=== PATIENT | female | born 1935 | race Caucasian/White ===

== ENCOUNTER → 2017-09-30 | Outpatient (CLI) | payer MEDICARE ==
--- NOTE | 2017-09-30 11:56 | XR ---
EXAMINATION TYPE: XR chest 2V DATE OF EXAM: 09/30/2017 COMPARISON: NONE INDICATION: Cough, enlarged heart per patient TECHNIQUE: Frontal and lateral views of the chest are obtained. FINDINGS: The heart size is normal. Cardiac silhouette diameter is 12 cm versus intrathoracic cavity measureme nt of 28 cm. The pulmonary vasculature is normal. The lungs are clear. IMPRESSION: 1. No acute pulmonary process.
== END | disposition home or self-care (01) ==
LOC: RADXRMAIN 11:13
PROVIDERS: ATTEND Internal Medicine Cardiovascular Disease
DX: R05 Cough (principal)
CPT/HCPCS: 71046

== ENCOUNTER → 2019-08-17 | Outpatient (CLI) | payer MEDICARE ==
[2019-08-17 12:43] LABS: HCT 39.8 % (34.0-46.0); HGB 13.6 gm/dL (11.4-16.0); MCH 32.8 pg (25.0-35.0); MCHC 34.1 g/dL (31.0-37.0); MCV 96.3 fL (80.0-100.0); Mean Platelet Volume 5.4; Platelet Count 310 k/uL (150-450); RBC 4.13 m/uL (3.80-5.40); RDW 14.5 % (11.5-15.5); WBC 7.7 k/uL (3.8-10.6)
[2019-08-17 13:09] LABS: Potassium 4.4 mmol/L (3.5-5.1)
== END | disposition home or self-care (01) ==
LOC: LABPAT 12:08
PROVIDERS: ATTEND Internal Medicine Cardiovascular Disease
DX: Z01.812 Encounter for preprocedural laboratory examination (principal); R07.9 Chest pain, unspecified
CPT/HCPCS: 36415; 80051; 82565; 84520; 85027

== ENCOUNTER 2019-08-25 08:45 | Day surgery (SDC) | payer MEDICARE, OTHER ==
[~2019-08-25 08:45] MED LIST: ALPRAZolam 0.25 MG TAB PO PRN; ALPRAZolam 0.5 MG TAB PO PRN; ATORVASTATIN 80 MG TAB PO ONE; NITROGLYCERIN SL TABS 0.4 MG TAB SUBLINGUAL PRN; SODIUM CHLORIDE 0.9% 1,000 ML in EMPTY BAG 1 BAG IV ONE
[2019-08-25 09:10] VITALS: TEMP 97.8
[2019-08-25] MEDS ORDERED: SODIUM CHLORIDE 0.9% 1,000 ML IV ONE (09:15)
[2019-08-25 09:21] LABS: Glucose,Whole Blood 160 mg/dL (75-99)
[2019-08-25] MEDS ORDERED: LIDOCAINE 1% INJ 10MG/ML (20 ML MDV) ONE (10:05)
[2019-08-25] MEDS ORDERED: fentaNYL (PF) 50 MCG/ML 2 ML AMP ONE (10:08)
[2019-08-25] MEDS ORDERED: VERAPAMIL 2.5 MG/ML 2 ML AMP ONE (10:08)
[2019-08-25] MEDS ORDERED: fentaNYL (PF) 50 MCG/ML 2 ML AMP IV ONE (10:19)
[2019-08-25] MEDS ORDERED: MIDAZOLAM 2 MG/2 ML VIAL IV ONE (10:21)
[2019-08-25] MEDS ORDERED: LIDOCAINE 1% INJ 10MG/ML (20 ML MDV) SQ ONE (10:21)
[2019-08-25] MEDS ORDERED: HEPARIN SODIUM 1,000 UN/ML (10ML VL) ONE (10:24)
[2019-08-25] MEDS ORDERED: VERAPAMIL SYRINGE (5 MG/10 ML) INTRAARTER ONE (10:26)
[2019-08-25] MEDS ORDERED: RX INFO: IV CONTRAST WAS GIVEN 1 EACH MISC MISCELLANE PRN (10:46)
[2019-08-25] MEDS ORDERED: IOPAMIDOL-370 125ML BTL INJ ONE (10:52)
--- NOTE | 2019-08-25 10:56 | P.CARDCATH ---
Date of Procedure: 08/25/19 Preoperative Diagnosis: Exertional angina, new-onset. Hypertension and hypercholesterolemia Postoperative Diagnosis: Calcification and mild disease involving the LAD and also mild disease involving mid RCA. Mild disease in the circumflex but no critical stenosis Procedure(s) Performed: Left heart catheterization without left ventriculography Description of Procedure: HISTORY: This is a 83-year-old female with history of hypertension, hypercholesterolemia and diabetes who has been experiencing exertional chest pain. His new-onset. Patient is treated with nitrates. Patient was advised to consider stress test or cardiac catheterization for definitive diagnosis. Patient family preferred to have cardiac cath for definitive diagnosis. CONSENT:I have discussed the risks, benefits and alternative therapies for the above-mentioned procedure and for both sedation/analgesia as well as necessary blood product administration, if indicated, as they pertain to this patient. The patient has indicated understanding and acceptance of the risks and procedures discussed. PROCEDURE: Patient was brought to the lab in a fasting state. Patient was given some IV sedation. The right wrist is infiltrated with lidocaine and right radial artery was entered using Seldinger technique. A 6-Khmer catheter was left in place and selective coronary arteriography was performed using Tico catheters.. Patient tolerated the procedure well. TR band was applied for hemostasis. No immediate complications were noted and patient was transferred to [facility] in a stable condition Conscious Sedation: Versed 0.5mg Fentanyl 25 g Duration 22minutes HEMODYNAMICS: The aortic pressure is 130/70. The left ventricle end-diastolic pressure was 12. There was no gradient across the aortic valve SELECTIVE CORONARY ARTERIOGRAPHY: LEFT MAIN: This is a short and free of occlusive disease THE LEFT ANTERIOR DESCENDING CORONARY ARTERY:. This is a good caliber vessel with calcification and plaque in the proximal portion. There are major diagonal branch and septal branch coming from the LAD. The rest of the LAD is free of any significant focal occlusive lesions. THE LEFT CIRCUMFLEX AND IS CORONARY ARTERY: His head good caliber vessel and codominant giving rise to good-sized OM branch and also distal PDA and PLV branches. The circumflex coronary artery and branches are free of occlusive disease. THE RIGHT CORONARY ARTERY: This is a good caliber vessel giving rise to PLV branches distally. The right coronary artery and branches are free of any significant occlusive disease. Mild plaque in the midportion with about 30% stenosis LEFT VENTRICULOGRAPHY: Not performed FINAL IMPRESSION:. Mild diffuse coronary artery disease with calcification of the proximal and mid LAD and 30% lesion in mid RCA PLAN: Maximum medical therapy and this factor modification PROGNOSIS: Fair
[2019-08-25] MEDS ORDERED: SODIUM CHLORIDE 0.9% 1,000 ML IV SCH (11:00)
[2019-08-25 11:16] LABS: Glucose,Whole Blood 168 mg/dL (75-99)
[2019-08-25 14:14] VITALS: RESP 16
[2019-08-25 14:23] VITALS: BP 132/78; PULSE 65
== END 2019-08-25 15:25 | disposition home or self-care (01) ==
LOC: CATHCVL 08:45
PROVIDERS: ATTEND Internal Medicine Cardiovascular Disease
DX: I25.110 Atherosclerotic heart disease of native coronary artery with unstable angina pectoris (principal); I10 Essential (primary) hypertension; E11.9 Type 2 diabetes mellitus without complications; E78.2 Mixed hyperlipidemia; Z79.84 Long term (current) use of oral hypoglycemic drugs; Z79.899 Other long term (current) drug therapy; Z88.0 Allergy status to penicillin; Z88.2 Allergy status to sulfonamides
CPT/HCPCS: 93458; C1769 ×3; C1894; J2250; J2001; J3010; J1644; Q9967